=== PATIENT | male | born 1990 | race American Indian/Alaskan Native ===

== ENCOUNTER 2016-09-17 21:35 | Emergency (ER) | payer MEDICAID ==
--- NOTE | 2016-09-17 22:27 | ED PDOC ---
Arrival/HPI <Nikunj,Adair - Last Filed: 09/18/16 00:07> - General Historian: Patient - History of Present Illness Time/Duration: 1-3 hours (3 hours) Symptom Onset: Gradual Symptom Course: Unchanged Activities at Onset: Rest, Light Context: Home <VallejoMame Johnson - Last Filed: 09/24/16 22:24> - General Time Seen by Provider: 09/17/16 22:27 - History of Present Illness Narrative History of Present Illness (Text): 09/17/16 22:27 26 year old male who presents to the Emergency department complaining of a frontal headache for the past 3 hours. Patient reports some photophobia but denies any dizziness, vision changes, diplopia, paresthesias, weakness/numbness , dysarthria, nausea, vomiting, back pain, neck pain, or any other complaints. (Mame Vallejo) Past Medical History - Provider Review Nursing Documentation Reviewed: Yes <Mame Vallejo - Last Filed: 09/24/16 22:24> Family/Social History - Physician Review Nursing Documentation Reviewed: Yes Family/Social History: Unknown Family HX <Mame Vallejo P - Last Filed: 09/24/16 22:24> Allergies/Home Meds <Nikunj,Adair - Last Filed: 09/18/16 00:07> <Mame Vallejo - Last Filed: 09/24/16 22:24> Allergies/Adverse Reactions: Allergies shellfish derived Allergy (Verified 09/17/16 22:30) RASH Review of Systems - Physician Review All systems were reviewed & negative as marked: Yes - Review of Systems Constitutional: Normal. absent: Fevers Eyes: Photophobia. absent: Vision Changes ENT: Normal Respiratory: Normal. absent: SOB, Cough Cardiovascular: Normal. absent: Chest Pain Gastrointestinal: Normal. absent: Nausea, Vomiting Genitourinary Male: Normal Musculoskeletal: Normal. absent: Back Pain, Neck Pain Skin: Normal Neurological: Headache. absent: Dizziness, Focal Weakness, Speech Changes Endocrine: Normal Hemo/Lymphatic: Normal Psychiatric: Normal <Mame Vallejo P - Last Filed: 09/24/16 22:24> Physical Exam Vital Signs Reviewed: Yes Temperature: Afebrile Blood Pressure: Normal Pulse: Regular Respiratory Rate: Normal Appearance: Positive for: Well-Appearing, Non-Toxic, Comfortable Pain Distress: None Mental Status: Positive for: Alert and Oriented X 3 - Systems Exam Head: Present: Atraumatic, Normocephalic Pupils: Present: PERRL Extroacular Muscles: Present: EOMI Conjunctiva: Present: Normal Ears: Present: Normal, NORMAL TM, Normal Canal. No: Erythema, TM Bulging, Fluid , TM Perf Mouth: Present: Moist Mucous Membranes Pharnyx: Present: Normal. No: ERYTHEMA, EXUDATE, TONSILS ENLARGED, Peritonsilar Swelling, Uvular Deviation, Muffled/Hoarse Voice, Strider, Soft Palate/Uvular Edema Nose (External): Present: Atraumatic Nose (Internal): Present: Normal Inspection Neck: Present: Normal Range of Motion. No: Meningeal Signs, MIDLINE TENDERNESS , Paraspinal Tenderness Respiratory/Chest: Present: Clear to Auscultation, Good Air Exchange. No: Respiratory Distress, Accessory Muscle Use Cardiovascular: Present: Regular Rate and Rhythm, Normal S1, S2. No: Murmurs Abdomen: Present: Normal Bowel Sounds. No: Tenderness, Distention, Peritoneal Signs Back: Present: Normal Inspection. No: CVA Tenderness, Midline Tenderness, Paraspinal Tenderness Upper Extremity: Present: Normal Inspection. No: Cyanosis, Edema Lower Extremity: Present: Normal Inspection. No: Edema Neurological: Present: GCS=15, CN II-XII Intact, Speech Normal, Motor Func Grossly Intact, Normal Sensory Function, Normal Cerebellar Funct, Gait Normal, Memory Normal, Other (No neuro focal deficits) Skin: Present: Warm, Dry, Normal Color. No: Rashes Psychiatric: Present: Alert, Oriented x 3, Normal Insight, Normal Concentration <Mame Vallejo - Last Filed: 09/24/16 22:24> Vital Signs Temp Pulse Resp BP Pulse Ox 09/18/16 01:30 16 99 09/18/16 00:08 98.5 F 68 16 99 09/17/16 22:25 98.8 F 62 16 136/82 99 Medical Decision Making <Adair Calvin - Last Filed: 09/18/16 00:07> Re-evaluation Time: 00:58 Reassessment Condition: Re-examined, Improved - Lab Interpretations I have reviewed the lab results: Yes Interpretation: No clinic. lab abnormalty <Mame Vallejo Last Filed: 09/24/16 22:24> ED Course and Treatment: Impression: 26 year old male complaining of frontal headache x3 hours. Plan: -- Labs -- IV fluids -- Reglan -- Benadryl -- Toradol -- Zofran -- Reassess and disposition Progress Notes: Re-evaluation. Patient feels better. Discussed results and plan with patient who expresses understanding. All questions answered and there is agreement with the plan to discharge home with instructions. Patient stable for discharge. Return if symptoms persist or worsen. Patient has a normal gait. NICOLE has improved. Denies photophobia. (Mame Vallejo) - Lab Interpretations Lab Results: 09/17/16 23:30 09/17/16 23:30 Lab Results 09/17/16 23:30: Sodium 140, Potassium 4.2, Chloride 102, Carbon Dioxide 28, Anion Gap 14, BUN 11, Creatinine 0.9, Est GFR ( Amer) > 60, Est GFR (Non- Af Amer) > 60, Random Glucose 86, Calcium 9.6, Total Bilirubin 0.6, AST 26, ALT 34, Alkaline Phosphatase 67, Total Protein 8.0, Albumin 4.3, Globulin 3.7, Albumin/Globulin Ratio 1.2 09/17/16 23:30: WBC 10.4, RBC 4.97, Hgb 14.4, Hct 43.0, MCV 86.5, MCH 29.0, MCHC 33.5, RDW 13.4, Plt Count 262, MPV 11.9 H, Gran % 71.9 H, Lymph % (Auto) 18.3 L, Andrews % (Auto) 7.8 H, Eos % (Auto) 1.6, Baso % (Auto) 0.4, Gran # 7.47 H , Lymph # 1.9, Andrews # 0.8 H, Eos # 0.2, Baso # 0.04 - Medication Orders Current Medication Orders: Discontinued Medications Diphenhydramine HCl (Benadryl) 50 mg IVP STAT STA Stop: 09/17/16 22:57 Last Admin: 09/17/16 23:46 Dose: 50 mg Sodium Chloride (Sodium Chloride 0.9%) 1,000 mls @ 999 mls/hr IV .Q1H1M STA Stop: 09/17/16 23:53 Last Admin: 09/17/16 23:45 Dose: 999 mls/hr Ketorolac Tromethamine (Toradol) 15 mg IVP STAT STA Stop: 09/17/16 22:56 Last Admin: 09/17/16 23:45 Dose: 15 mg Metoclopramide HCl (Reglan) 10 mg IVP STAT STA Stop: 09/17/16 22:54 Last Admin: 09/17/16 23:46 Dose: 10 mg Ondansetron HCl (Zofran Inj) 4 mg IVP STAT STA Stop: 09/17/16 23:40 Last Admin: 09/17/16 23:47 Dose: Not Given Non-Admin Reason: Patient Refused Ondansetron HCl (Zofran Inj) Confirm Administered Dose 4 mg .ROUTE .STK-MED ONE Stop: 09/17/16 23:41 Last Admin: 09/17/16 23:47 Dose: - PA / HAT BLOCKER / Resident Statement MD/DO has reviewed & agrees with the documentation as recorded. <Adair Calvin - Last Filed: 09/18/16 00:07> - Scribe Statement The provider has reviewed the documentation as recorded by the Scribe <Mame Vallejo - Last Filed: 09/24/16 22:24> - Scribe Statement Ayanna Mohan Provider Scribe Attestation: All medical record entries made by the Scribe were at my direction and personally dictated by me. I have reviewed the chart and agree that the record accurately reflects my personal performance of the history, physical exam, medical decision making, and the department course for this patient. I have also personally directed, reviewed, and agree with the discharge instructions and disposition. (Mame Vallejo) Disposition/Present on Arrival <Adair Calvin - Last Filed: 09/18/16 00:07> - Present on Arrival Any Indicators Present on Arrival: No History of DVT/PE: No History of Uncontrolled Diabetes: No Urinary Catheter: No History of Decub. Ulcer: No - Disposition Have Diagnosis and Disposition been Completed?: Yes Disposition Time: 00:58 Patient Plan: Discharge <Mame Vallejo - Last Filed: 09/24/16 22:24> - Disposition Diagnosis: Headache Disposition: HOME/ ROUTINE Condition: IMPROVED Discharge Instructions (ExitCare): General Headache (ED) Additional Instructions: Call private doctor for follow up visit in 1-2 days. Take medication as instructed. return to emergency if symptoms worsen. Prescriptions: Acetaminophen/Butalbital/Caf [Fioricet] 1 tab PO Q4H PRN #12 tab PRN Reason: Headache Referrals: PCP,NO [Primary Care Provider] - Follow up with primary [facility] [Outside] - Follow up with primary [facility] [Outside] - Follow up with primary
[2016-09-17 22:30] VITALS: BP 136/82; RESP 16; O2SAT 99; BMI 32.3
[2016-09-17] MEDS ORDERED: Sodium Chloride 0.9% 1,000 ML IV STA (22:53)
[2016-09-17] MEDS ORDERED: DiphenhydrAMINE 50 mg/ml Inj IVP STA (22:56)
[2016-09-18 00:02] LABS: BASO # 0.04 K/mm3 (0.0-2.0); BASO % 0.4 % (0.0-3.0); EOS # 0.2 (0.0-0.7); EOS % 1.6 % (1.5-5.0); GRAN # 7.47 (1.4-6.5); GRAN % 71.9 % (50.0-68.0); HEMOGLOBIN 14.4 gm/dL (14.0-18.0); LYMPH # 1.9 (1.2-3.4); LYMPH % 18.3 % (22.0-35.0); MEAN CELL VOLUME 86.5 fL (80.0-105.0); MEAN CORPUSCULAR HGB CONC 33.5 g/dl (31.0-37.0); MEAN PLATELET VOLUME 11.9 fl (7.0-11.0); MONO # 0.8 (0.1-0.6); MONO % 7.8 % (1.0-6.0); PLATELET COUNT 262 10^3/uL (120.0-450.0); RBC 4.97 10^6/uL (3.5-6.1); RED CELL DISTRIBUTION WIDTH 13.4 % (11.5-14.5); WHITE BLOOD COUNT 10.4 10^3/ul (4.5-11.0)
[2016-09-18 00:08] VITALS: PULSE 68; TEMP 98.5
[2016-09-18 00:19] LABS: ALB/GLOB RATIO 1.2 (1.1-1.8); ALBUMIN 4.3 g/dL (3.0-4.8); ALT/SGPT 34 U/L (7-56); AST/SGOT 26 U/L (15-59); BLOOD UREA NITROGEN 11 mg/dL (7-21); CALCIUM 9.6 mg/dL (8.4-10.5); GFR AFRICAN-AMERICAN > 60; GFR NON-AFRICAN AMERICAN > 60
== END 2016-09-18 01:56 | disposition home or self-care (01) ==
LOC: ED 21:35
DX: R51 Headache (principal)
CPT/HCPCS: 80053; 85025; 96374; 96375; 96376; 99285; J1200; J1885; J2765; J7040